=== PATIENT | female | born 1980 | race African-American/Black ===

== ENCOUNTER 2018-03-31 00:36 | Emergency (ER) | payer OTHER ==
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
[2018-03-31] MEDS ORDERED: IBUPROFEN 600 MG TABLET (FP) PO ONE ×3 (01:24→01:46)
[2018-03-31 01:36] VITALS: BP 170/100; PULSE 80; BMI 36.0
[2018-03-31] MEDS ORDERED: CYCLOBENZAPRINE HCL 10 MG TABLET (FP) PO ONE (02:37)
[2018-03-31] MEDS ORDERED: CYCLOBENZAPRINE HCL 10 MG TABLET (FP) ONE (02:38)
== END 2018-03-31 03:07 | disposition home or self-care (01) ==
LOC: JER 00:36
DX: S49.82XA Other specified injuries of left shoulder and upper arm, initial encounter (principal); V43.62XA Car passenger injured in collision with other type car in traffic accident, initial encounter; Y92.414 Local residential or business street as the place of occurrence of the external cause; Y93.89 Activity, other specified; Y99.8 Other external cause status; O13.5 Gestational [pregnancy-induced] hypertension without significant proteinuria, complicating the puerperium
CPT/HCPCS: 73030-TC-LT-FY; 99282-25

== ENCOUNTER 2019-11-20 15:43 | Emergency (ER) | payer OTHER ==
--- NOTE | 2019-11-20 16:11 | PDOC ---
History of Present Illness - General Chief Complaint: Syncope/Near Syncope Stated Complaint: SYNCOPE History Source: Patient Exam Limitations: No Limitations - History of Present Illness Initial Comments: 11/20/19 16:09 PCP: None HPI: 39yo F PMH HTN presenting s/p syncopal episode at home immediately [employer]. Patient reports going to get towels to clean up an overflowing toilet, heard a high pitched ringing in both ears, and suddenly passed out. Denies prodromal headache, nausea, changes in vision, photophobia, back/abd pain, lightheadedness. Swmlbs-sw-rac who was in the other room found her on the floor unconscious, called 911, reports that the patient was unconscious for 6-7 minutes but did open her eyes but wasn't able to move, diaphoretic. Patient now complaining of frontal headache, weakness, lightheadedness, nausea. One episode vomiting, MARIA has been constant, patient incontinent of urine after event. Denies any prior episodes / seizures. No recent illnesses or sick contacts. No neuro or cardiac history. Family at bedside reports patient has been working out a lot recently. All: NKDA Meds: None PMH: HTN PSH: x2 Past History - Travel Traveled outside of the country in the last 30 days: No Close contact w/someone who was outside of country & ill: No - Past Medical History Allergies/Adverse Reactions: Allergies Allergy/AdvReac Type Severity Reaction Status Date / Time No Known Allergies Allergy Verified 11/20/19 15:54 Home Medications: Ambulatory Orders Cyclobenzaprine HCl [Flexeril 10 mg] 10 mg PO BID PRN #10 tablet 03/31/18 Ibuprofen [Motrin -] 600 mg PO TID PRN #21 tablet 03/31/18 Asthma: No Cancer: No Cardiac Disorders: No COPD: No Diabetes: No HTN: Yes (gestational (no meds)) Seizures: No Thyroid Disease: No - Reproductive History (#): 2 Para: 1 Therapeutic (s) & number: No Spontaneous : 0 - Psycho Social/Smoking Cessation Hx Smoking Status: No Smoking History: Never smoked Have you smoked in the past 12 months: No Number of Cigarettes Smoked Daily: 0 Hx Alcohol Use: No Drug/Substance Use Hx: No Hx Substance Use Treatment: No Review of Systems - Review of Systems Able to Perform ROS?: Yes Is the patient limited Czech proficient: Yes Constitutional: Yes: Diaphoresis (after syncope), Weakness. No: Chills, Fever HEENTM: Yes: Recent change in vision (photophobia). No: Nose Congestion, Throat Pain Respiratory: No: Cough, Shortness of Breath, Wheezing Cardiac (ROS): Yes: See HPI, Lightheadedness, Syncope. No: Chest Pain, Irregular Heart Rate, Palpitations, Chest Tightness ABD/GI: Yes: Nausea. No: Constipated, Diarrhea, Poor Appetite, Poor Fluid Intake, Vomiting : No: Burning, Dysuria, Frequency Musculoskeletal: Yes: Muscle Weakness. No: Back Pain, Muscle Pain Integumentary: No: Erythema, Pruritus, Rash Neurological: Yes: See HPI, Headache, Weakness. No: Numbness, Tingling Endocrine: Yes: Change in Weight (recent exercise ). No: Increased Thirst, Increased Urine Hematologic/Lymphatic: No: Anemia, Blood Clots, Easy Bleeding All Other Systems: Reviewed and Negative *Physical Exam - Physical Exam 11/20/19 16:32 Vitals reviewed, hypertensive to 156 SBP, otherwise AFVSS GEN: Tired appearing, appears stated age, obese, NAD, comfortable. AAOx3. HEENT: NCAT, EOMI, PERRL. Sclera anicteric, non-injected. No facial asymmetry. Moist mucous membranes. Normal voice. Trachea midline. CV: RRR, S1/S2, no murmurs / rubs / gallops appreciated. LUNG: CTAB, normal work of breathing. No wheezes, rales, rhonchi. No cough. Speaking full sentences. GI: Soft, NTND, +BS, no guarding, no rebound. No masses. Neg CVAT b/l. EXTREMITIES: 2+ distal pulses. No LE edema. No obvious deformities of all extremities. SKIN: Warm, dry, no rashes appreciated, non-jaundiced. PSYCH: Appears tired, initially slow to answer, responsive when pushed. Cooperative and appropriate. NEURO: CN 2-12 intact. Normal sensation to light touch. Moving all extremities equally. A&Ox3. Conversant but tired. Normal articulation and speech. ED Treatment Course - LABORATORY CBC & Chemistry Diagram: 11/20/19 16:50 11/20/19 16:50 Medical Decision Making - Medical Decision Making 11/20/19 17:30 39yo F PMH HTN presenting s/p syncope found to have acute subarchnoid hemorrhage on CT. Alert oriented, conversant and cooperative, MAEE. Ordered: CT, basic labs, urine studies, EKG EKG: NSR, 63bpm, normal axis, QTc 433, no ST changes noted 11/20/19 17:35 - CT concerning for subarachnoid - Official read pending - 4mg Zofran ordered, - BP 154/90 on arrival, repeating 11/20/19 17:41 - Ct Read with acute subarachnoid hemorrhage with intraventricular blood. Resultant obstructive hydrocephalus is noted which is probably mild. - Cardene Drip ordered for elevated BP (173/97) - 1g Keppra 11/20/19 17:49 - Serum ordered - No leukocytosis or anemia 11/20/19 17:56 - Patient accepted for transfer to [facility] Neuro ICU under Dr. Ortiz / Zaynab - Face sheet FAX to [phone] - CT CD being prepared 11/20/19 18:15 - INR 1.11 - H&H wnl 11.9/36.0 - No electrolyte aberrations - Negative serum test - BP improving with Cardene drip at 5 to 160s SBP - Reassessing q5m 11/20/19 18:24 Dispo: Transfer to [facility] Neuro ICU Dr. Zaynab Nelson 11/20/19 18:29 -Lactic 2.8 11/20/19 18:47 - 150/77 on Cardene 5 Transfer: [facility] Neuro 11/22/19 09:03 Discharge - Discharge Information Problems reviewed: Yes Clinical Impression/Diagnosis: Subarachnoid bleed Condition: Stable Disposition: TRANSFER ACUTE CARE/OTHER HOSP - Admission No - Follow up/Referral - Patient Discharge Instructions Additional Instructions: You were seen at [facility] for syncope and headache. You were transferred to [place] for subarachnoid hemorrhage. Additional care per Neuro ICU. - Post Discharge Activity - Transfer to Acute Care Facility Receiving Facility Name: [email or web address] Accepting Physician:: Dr. Ortiz / Dr. Worthy
[2019-11-20 16:34] VITALS: BMI 41.1
[2019-11-20 17:21] LABS: HEMOGLOBIN 11.9 GM/dL (10.7-15.3); MCH 28.1 pg (25.7-33.7); MCHC 33.1 g/dl (32.0-36.0); MEAN PLT VOLUME 8.1 fl (7.5-11.1); PLATELET COUNT 298 K/MM3 (134-434); RBC 4.24 M/mm3 (3.60-5.2); WHITE BLOOD COUNT 6.4 K/mm3 (4.0-10.0)
[2019-11-20 17:35] LABS: INR 1.11 (0.83-1.09); PROTHROMBIN TIME (PATIENT) 13.1 SEC (9.7-13.0)
[2019-11-20] MEDS ORDERED: ONDANSETRON 4 MG/2 ML VIAL IVPUSH ONE (17:35)
[2019-11-20] MEDS ORDERED: levETIRAcetam 500 MG/5 ML INJECTION VIAL IVPB ONE ×2 (17:44→17:46)
[2019-11-20] MEDS ORDERED: NICARDIPINE 25 MG in DEXTROSE 5%-WATER - 240 ML IVPB SCH (17:45)
[2019-11-20] MEDS ORDERED: ONDANSETRON 4 MG/2 ML VIAL ONE (17:47)
[2019-11-20 17:57] LABS: BILIRUBIN,TOTAL 0.3 mg/dL (0.2-1); BLOOD UREA NITROGEN 14.7 mg/dL (7-18); CALCIUM 9.3 mg/dL (8.5-10.1); CREATININE 0.9 mg/dL (0.55-1.3); MAGNESIUM 2.2 mg/dL (1.8-2.4); PHOSPHOROUS 2.9 mg/dL (2.5-4.9); POTASSIUM 3.9 mmol/L (3.5-5.1)
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
[2019-11-20 19:24] VITALS: BP 150/77; PULSE 71; TEMP 98.5
--- NOTE | 2019-11-21 13:16 | EKG ---
Test Reason : Blood Pressure : / mmHG Vent. Rate : 063 BPM Atrial Rate : 063 BPM P-R Int : 210 ms QRS Dur : 094 ms QT Int : 424 ms P-R-T Axes : 008 -01 013 degrees QTc Int : 433 ms SINUS RHYTHM WITH 1ST DEGREE A-V BLOCK VOLTAGE CRITERIA FOR LEFT VENTRICULAR HYPERTROPHY NONSPECIFIC T WAVE ABNORMALITY ABNORMAL ECG NO PREVIOUS ECGS AVAILABLE Confirmed by MIGUEL LADD MD ([id number]) on 11/21/2019 1:15:46 PM Referred By: Confirmed By:MIGUEL LADD MD
== END 2019-11-20 20:10 | disposition short-term general hospital (02) ==
LOC: JER 15:43
PROC: 3E033GC Introduction of Other Therapeutic Substance into Peripheral Vein, Percutaneous Approach (ICD-10-PCS; principal; 2019-11-20)
DX: I60.9 Nontraumatic subarachnoid hemorrhage, unspecified (principal); I10 Essential (primary) hypertension
CPT/HCPCS: 36415; 70450-TC; 80053; 82550; 83605; 83735; 84100; 84484; 84703; 85027; 85610; 93005; 93010; 96374; 96375; 99285-25